=== PATIENT | male | born 1950 | race Caucasian/White ===

== ENCOUNTER 2018-06-06 17:14 | Inpatient (IN) | payer OTHER ==
[~2018-06-06] VITALS: Ht 165.1 cm; Wt 62.1 kg
--- NOTE | 2018-06-06 17:45 | NUR ---
BIB [facility], TACHYPNEIC AND WARM TO TOUCH. VENT/TRACH, CONTRACTED EXTREMITIES. WITH FC, GTUBE. SEEN BY MD FOR EVAL. SAFETY AND COMFORT MEASURES PROVIDED. WILL MONITOR.
[2018-06-06] MEDS ORDERED: SENN8.8S12 GT (17:50)
[2018-06-06] MEDS ORDERED: METO25TA20 GT (17:50)
[2018-06-06] MEDS ORDERED: POLY17PO4 GT (17:50)
[2018-06-06] MEDS ORDERED: AMLO5TAB2 GT (17:50)
[2018-06-06] MEDS ORDERED: AMIO200T4 GT (17:50)
[2018-06-06] MEDS ORDERED: INSU100V3 SQ (17:50)
[2018-06-06] MEDS ORDERED: ASCO500T9 GT (17:50)
[2018-06-06] MEDS ORDERED: LEVE100S GT (17:50)
[2018-06-06] MEDS ORDERED: IPRA3AMP23 IH (17:50)
[2018-06-06] MEDS ORDERED: FAMO40TA7 GT (17:50)
[2018-06-06] MEDS ORDERED: BLOO-668 IN (17:50)
[2018-06-06] MEDS ORDERED: ONDA4TAB5 GT (17:50)
[2018-06-06] MEDS ORDERED: LACT-209 GT (17:50)
[2018-06-06] MEDS ORDERED: ENOX40DI SQ (17:50)
[2018-06-06] MEDS ORDERED: ACET650S26 GT (17:50)
[2018-06-06] MEDS ORDERED: VANC50SO GT (17:51)
--- NOTE | 2018-06-06 18:00 | NUR ---
CALLED NURSING LACTATION NURSE AND REQUESTED A TELE BED
[2018-06-06 18:09] LABS: BASOPHILS # (AUTO) 0.2 /CMM (0.0-0.2); BASOPHILS % (AUTO) 1.3 % (0.0-2.0); EOSINOPHILS % (AUTO) 4.1 % (0.0-6.0); HEMATOCRIT 41 % (39-51); HEMOGLOBIN 13.3 g/dL (13.5-17.5); LYMPHOCYTES % (AUTO) 14.6 % (20.0-44.0); MEAN CORPUSCULAR HEMOGLOBIN 32 PG (26.0-33.0); MEAN CORPUSCULAR HGB CONC 32 g/dl (31.0-36.0); MEAN CORPUSCULAR VOLUME 98 fL (80-96); MONOCYTES # (AUTO) 0.7 /CMM (0.1-1.30); MONOCYTES % (AUTO) 5.1 % (2.0-12.0); NEUTROPHILS # (AUTO) 10.5 /CMM (1.8-8.9); NEUTROPHILS % (AUTO) 74.9 % (43.0-81.0); PLATELET COUNT (AUTO) 584 /CMM (150-450); RDW COEFFICIENT OF VARIATION 15.8 (11.5-15.0); RED BLOOD CELL COUNT(AUTO) 4.23 MIL/uL (4.5-6.0)
--- NOTE | 2018-06-06 18:14 | NUR ---
CALLED [facility] FOR PANEL CALL AND [place]ER[place] LIRA WAS PAGED.
[2018-06-06 18:23] LABS: CALCIUM, SERUM 9.7 mg/dL (8.5-10.1); CARBON DIOXIDE 28 mmol/L (21-32); CHLORIDE 97 mmol/L (98-107); CREATININE 1.2 mg/dL (0.6-1.3); GLUCOSE 104 mg/dL (74-106); SODIUM SERUM 133 mmol/L (136-145); UREA NITROGEN, BLOOD 32 mg/dL (7-18)
[2018-06-06 18:28] LABS: ALANINE AMINOTRANSFERASE 60 U/L (12-78); ALBUMIN 2.5 g/dL (3.4-5.0); ALKALINE PHOSPHATASE 114 U/L (46-116); ASPARTATE AMINOTRANSFERASE 71 U/L (15-37); BILIRUBIN,DIRECT 0.3 mg/dL (0.0-0.2); BILIRUBIN,TOTAL 0.8 mg/dL (0.2-1.0); TOTAL PROTEIN, SERUM 8.5 g/dL (6.4-8.2)
[2018-06-06] MEDS ORDERED: VANCOMYCIN 1 GM in IV D5W 250 ML IV ONE (18:30)
[2018-06-06] MEDS ORDERED: PIPERACILLIN /TAZOBACTAM 3.375 G in IV D5W 50 ML IV ONE (18:30)
[2018-06-06 18:31] LABS: APPEARANCE,URINE Cloudy (CLEAR); BILIRUBIN,URINE Negative (NEGATIVE); BLOOD, URINE Large Ery/uL (NEGATIVE); COLOR,URINE Yellow (YELLOW); KETONES,URINE Negative (NEGATIVE); LEUKOCYTE ESTERASE ,URINE Small (NEGATIVE); NITRITE, URINE Negative (NEGATIVE); PH,URINE 5.5 (5.0-8.0); PROTEIN,URINE 100 mg/dl (NEGATIVE); UGLUCOSE Negative (NEGATIVE); UROBILINOGEN,URINE 0.2 EU/dL (0.2)
[2018-06-06 18:31] LABS: TROPONIN I < 0.017 ng/mL (0.00-0.056)
[2018-06-06 18:32] LABS: INR 1.15 (0.85-1.15)
--- NOTE | 2018-06-06 18:33 | NUR ---
OLD FC DISCONTINUED, NEW FC PLACED. URINE SAMPLE OBTAINED, SENT.
[2018-06-06 18:52] LABS: BACTERIA,URINE Moderate /HPF (None Seen); RBC,URINE 21-50 /HPF (0-2); SQUAMOUS EPITHELIAL CELL,UR Few /HPF (None Seen)
[2018-06-06] MEDS ORDERED: IV NS 0.9% 1,000 ML BAG IV ONE (19:00)
--- NOTE | 2018-06-06 19:29 | NUR ---
REPORT GIVEN TO ED FOR MAIDA.
--- NOTE | 2018-06-06 19:49 | NUR ---
DR MUJICA ON THE PHONE WITH DR SAUNDERS
--- NOTE | 2018-06-06 20:21 | NUR ---
REPORT GIVEN TO CARRIER OPERATORBRIANA QUINTANA. WILL TRANSPORT PT VIA ACLS PROTOCOL.
--- NOTE | 2018-06-06 20:40 | NUR ---
MARC/SLIVER HANDLER NOTES: RECEIVED PT. VIA GURGISELE FROM María Kee/ NURSE PABLO. PT. HAS HIS EYES OPEN BUT NON VERBAL. RESPONSIVE TO TACTILE STIMULI. CONTRACTED UPPER EXTREMITIES AND LOWER EXTREMITIES. ON TELE MONITOR W/ ST 106. W/ GTF OF JEVITY 1.2 @ 50 CC/ HR TOLERATING WELL W/ NO RESIDUAL NOTED. W/ F/C PATENT AND INTACT DRAINING VIA GRAVITY. W/ RFA G 18 AND LH G 20 PATENT AND INTACT W/ NO S/S OF INFECTION/INFILTRATION NOTED. W/ NS @ 100 CC/HR. NO FACIAL GRIMACE OR MOANING NOTES. NO S/S OF ANY RESPIRATORY DISTRESS NOTED. CALL LIGHT W/REACH. WILL CONTINUE TO MONITOR.
[2018-06-06 20:44] VITALS: BP 106/55
[2018-06-06] MEDS ORDERED: IV NS 0.9% 1,000 ML IV ONE (22:00)
[2018-06-06] MEDS ORDERED: JEVITY 1.2 CAL 1,000 ML BOTTLE GT PRN (22:30)
[2018-06-06] MEDS ORDERED: ACETAMINOPHEN LIQUID 160 MG/5 ML BOTTLE GT PRN (22:30)
[2018-06-06] MEDS ORDERED: INSULIN REGULAR, HUMAN 100 UNIT/ML 3 ML VIAL SQ PRN (22:30)
[2018-06-06] MEDS ORDERED: DEXTROSE 50%-WATER 50 ML DISP.SYRIN IV PRN (22:30)
[2018-06-06] MEDS ORDERED: IPRATROPIUM NEB FS 0.5 MG/2.5 ML AMPUL.NEB NEB PRN (22:30)
[2018-06-06] MEDS ORDERED: ONDANSETRON HCL/PF 4 MG/2 ML VIAL IV PRN (22:30)
[2018-06-06] MEDS ORDERED: ALBUTEROL FS 2.5 MG/0.5 ML VIAL.NEB NEB PRN (22:30)
[2018-06-06] MEDS: IV NS 0.9% 1,000 ML BAG IV PRN (23:22)
[2018-06-07] VITALS: BP 109/57
[2018-06-07] MEDS: AMIODARONE HCL 200 MG TABLET GT SCH ×3 (01:21→16:28)
[2018-06-07] MEDS ORDERED: PIPERACILLIN /TAZOBACTAM 3.375 G VIAL IV ONE (01:35)
[2018-06-07] MEDS: PIPERACILLIN /TAZOBACTAM 3.375 G in IV D5W 50 ML IV SCH ×6 (01:53→23:18)
[2018-06-07 04:00] VITALS: BP 91/52
--- NOTE | 2018-06-07 05:21 | NUR ---
MARC/RN NOTES: SPOKE TO ONCALL PHARMACIST TO INFORM THAT ZOSYN WAS HUNG @ 1:30 AM AND IT IS Q 8 HRS. IT IS OK TO HOLD THE 5 AM DOSE. PER THE PHARMACIST IT IS TO SOON TO GIVE. OK TO HOLD THE 5 AM DOSE.
[2018-06-07] MEDS: BLOOD SUGAR DIAGNOSTIC 1 EACH STRIP IN SCH ×5 (05:38→23:17)
[2018-06-07 07:23] LABS: BASOPHILS % (AUTO) 0.3 % (0.0-2.0); EOSINOPHILS % (AUTO) 5.6 % (0.0-6.0); HEMATOCRIT 30 % (39-51); LYMPHOCYTES # (AUTO) 1.9 /CMM (0.8-4.8); LYMPHOCYTES % (AUTO) 19.1 % (20.0-44.0); MEAN CORPUSCULAR HEMOGLOBIN 34 PG (26.0-33.0); MEAN CORPUSCULAR HGB CONC 33 g/dl (31.0-36.0); MEAN CORPUSCULAR VOLUME 102 fL (80-96); MONOCYTES # (AUTO) 0.6 /CMM (0.1-1.30); MONOCYTES % (AUTO) 5.6 % (2.0-12.0); NEUTROPHILS # (AUTO) 6.9 /CMM (1.8-8.9); NEUTROPHILS % (AUTO) 69.4 % (43.0-81.0); PLATELET COUNT (AUTO) 355 /CMM (150-450); RDW COEFFICIENT OF VARIATION 16.4 (11.5-15.0); RED BLOOD CELL COUNT(AUTO) 2.92 MIL/uL (4.5-6.0); WHITE BLOOD COUNT (AUTO) 9.9 K/uL (4.3-11.0)
[2018-06-07 07:29] LABS: HEMOGLOBIN 9.9 g/dL (13.5-17.5)
[2018-06-07] MEDS ORDERED: ACETAMINOPHEN 650 MG/20.3 ML UDC GT PRN (07:30)
[2018-06-07 07:40] LABS: CALCIUM, SERUM 8.1 mg/dL (8.5-10.1); CREATININE 0.8 mg/dL (0.6-1.3); MAGNESIUM 1.7 mg/dL (1.8-2.4); POTASSIUM 3.7 mmol/L (3.5-5.1)
[2018-06-07] MEDS ORDERED: FEE PK DOSING 1 MIN EA MC ONE (07:52)
--- NOTE | 2018-06-07 07:58 | NUR ---
MARC/RN NOTES: REPORT GIVEN TO AM NURSE FOR MAIDA.
[2018-06-07 08:00] VITALS: BP 95/45
--- NOTE | 2018-06-07 08:15 | NUR ---
MARC/RN INITIAL NOTES RECEIVED CHANGE OF ASSIGNMENT. RECEIVED REPORT FROM BRIANA QUINTANA. RECEIVED PT IN BED, ASLEEP, AROUSABLE TO LIGHT PAIN. SINUTS TACHY, HR 107 ON TELEMONITOR. WITH INTACT TPIECE, SHILEY #6 FIO2 28%, TOLERATING WELL, NO SOB NOTED. HOB ELEVATED. WITH ONGOING GTF OF JEVITY 1.2 AT 50 ML/HR, TOLERATING WELL, NO RESIDUE NOTED. GT INTACT AND IN PLACED. WITH ONGOING IVF NS AT 100 ML/HR INFUSING WELL ON RFA. WITH INTACT AND PATENT LHAND SL. NO SIGNS OF INFECTION NOTED. WITH INTACT FC DRAINING BY GRAVITY. SAFETY MEASURES, ASPIRATION AND SEIZURE PRECAUTION IN PLACED. CALL LIGHT WITHIN REACH. WILL CONT TO MONITOR
[2018-06-07] MEDS ORDERED: FAMOTIDINE (20 MG) 20 MG TABLET GT SCH (09:00)
[2018-06-07] MEDS: METOPROLOL TARTRATE 25 MG TABLET GT SCH (09:00)
[2018-06-07] MEDS: POLYETHYLENE GLYCOL 3350 17 GM POWD.PACK GT SCH (09:46)
[2018-06-07] MEDS: ASCORBIC ACID 500 MG TABLET GT SCH (09:46)
[2018-06-07] MEDS: SENNOSIDES 8.6 MG TABLET GT SCH (09:46)
[2018-06-07] MEDS: LEVETIRACETAM SOL (5 ML) 100 MG/ML UDC GT SCH ×2 (09:46→20:26)
[2018-06-07] MEDS: FAMOTIDINE (20 MG) 20 MG TABLET GT SCH (09:46)
[2018-06-07] MEDS: ENOXAPARIN SODIUM 40 MG/0.4 ML DISP.SYRIN SQ SCH (09:53)
[2018-06-07] MEDS: VANCOMYCIN 0.75 GM in IV D5W 250 ML IV SCH ×2 (09:55→20:26)
[2018-06-07] MEDS: IV NS 0.9% 1,000 ML BAG IV PRN ×2 (10:42→22:27)
[2018-06-07] MEDS: Magnesium 1GM/D5W 100ML PREMIX 100 ML IV SCH ×2 (11:21→12:18)
[2018-06-07 12:00] VITALS: BP 110/53
[2018-06-07 16:00] VITALS: BP_SYST 101; BP_SYST 110; BP_DIAS 50; BP_DIAS 53
--- NOTE | 2018-06-07 19:10 | NUR ---
MARC/RN CLOSING NOTES PT IN STABLE CONDITION. NO ACUTE DISTRESS NOTED THROUGHOUT SHIFT. REMAINED AFEBRILE. NO SEIZURE EPISODE NOTED. SAFETY MEASURES AND ASPIRATION PRECAUTION OBSERVED AT ALL TIMES. ALL NEEDS ANTICIPATED. ENDORSED TO SHIFT NURSE FOR MAIDA
--- NOTE | 2018-06-07 19:30 | NUR ---
RN INITIAL NOTES RECEIVED THE PATIENT AWAKE ON BED, OBTUNDED. ON COOL AEROSOL, 28% FIO2, SHILEY 6, SATURATING WELL, NO S/S OF RESP DISTRESS. CURRENTLY SINUS TACH ON THE MONITOR, HR 110'S. PEG TO JEVITY 1.2 @ 50MLS/HR, NO RESIDUALS, TOLERATING WELL. ZELAYA CATH INTACT. RIGHT FOREARM 18G AND LEFT HAND 20G WITH NS @ 100MLS/HR, NO S/S OF INFILTRATION/INFECTION, DRESSINGS CDI. BED LOW AND LOCKED, SIDERAILS UP, BED ALARM ON. WILL MONITOR
[2018-06-07 20:00] VITALS: BP 107/55
[2018-06-08] VITALS: BP 98/53
[2018-06-08 04:00] VITALS: BP 114/67
[2018-06-08] MEDS: BLOOD SUGAR DIAGNOSTIC 1 EACH STRIP IN SCH ×4 (05:22→23:34)
[2018-06-08] MEDS: PIPERACILLIN /TAZOBACTAM 3.375 G in IV D5W 50 ML IV SCH (05:28)
--- NOTE | 2018-06-08 06:15 | NUR ---
RN CLOSING NOTES PT REMAINS STABLE OF THE MOMENT. ALL DUE MEDS GIVEN, AM CARE PROVIDED. WILL ENDORSE MAIDA TO AM RN
[2018-06-08 06:44] LABS: BASOPHILS % (AUTO) 0.2 % (0.0-2.0); EOSINOPHILS % (AUTO) 6.1 % (0.0-6.0); HEMATOCRIT 33 % (39-51); LYMPHOCYTES # (AUTO) 1.9 /CMM (0.8-4.8); LYMPHOCYTES % (AUTO) 24.6 % (20.0-44.0); MEAN CORPUSCULAR HEMOGLOBIN 34 PG (26.0-33.0); MEAN CORPUSCULAR HGB CONC 33 g/dl (31.0-36.0); MEAN CORPUSCULAR VOLUME 103 fL (80-96); MONOCYTES # (AUTO) 0.7 /CMM (0.1-1.30); MONOCYTES % (AUTO) 8.3 % (2.0-12.0); NEUTROPHILS # (AUTO) 4.8 /CMM (1.8-8.9); NEUTROPHILS % (AUTO) 60.8 % (43.0-81.0); PLATELET COUNT (AUTO) 305 /CMM (150-450); RDW COEFFICIENT OF VARIATION 16.4 (11.5-15.0); RED BLOOD CELL COUNT(AUTO) 3.21 MIL/uL (4.5-6.0); WHITE BLOOD COUNT (AUTO) 7.9 K/uL (4.3-11.0)
[2018-06-08 07:10] LABS: CALCIUM, SERUM 7.9 mg/dL (8.5-10.1); CREATININE 0.7 mg/dL (0.6-1.3)
[2018-06-08 08:00] VITALS: BP 118/59
--- NOTE | 2018-06-08 08:00 | NUR ---
TD/RN AM SHIFT INITIAL NOTES RECEIVED PT AWAKE IN BED, PT OBTUNDED, OPEN EYES SPONTANEOUSLY, NO GRIMACING, FEVER OR ACUTE RESPIRATORY DISTRESS NOTED. ON T-PIECE WITH 5L O2, FIO2 28%, RESPIRATIONS EVEN AND UNLABORED, SATURATING @ 1009%, LUNG SOUNDS DIMINISHED, SUCTIONED FOR AIRWAY CLEARANCE. ON TELE MONITORING SINUS TACHY , HR 61. PT IS VERY CONTRACTED, FEET REPOSITIONED TO OFFLOAD BED. HANDS WITH PITTING EDEMA. WITH ON GOING IV INFUSION OF NS @ 100CC/HR, SITE PATENT, NO S/S OF INFECTION. GT FEEDING ON GOING @ 505CC/HR, NO GASTRIC RESIDUAL NOTED, FLUSHED, PATENT, FEEDING TURNED OFF FOR THE 20 HOUR FEEDING SCHEDULED TO RESUME AT NOON. ZELAYA CATHETER INTACT WITH CLOUDY YELLOW URINE OUTPUT. PT IS COMFORTABLE, SCHEDULED AM MEDS TO BE GIVEN. CL WITHIN REACHED AND SAFETY MAINTAINED
[2018-06-08] MEDS: VANCOMYCIN 0.75 GM in IV D5W 250 ML IV SCH ×2 (09:00→22:20)
[2018-06-08] MEDS: ENOXAPARIN SODIUM 40 MG/0.4 ML DISP.SYRIN SQ SCH (09:01)
[2018-06-08] MEDS: POLYETHYLENE GLYCOL 3350 17 GM POWD.PACK GT SCH (09:01)
[2018-06-08] MEDS: SENNOSIDES 8.6 MG TABLET GT SCH (09:02)
[2018-06-08] MEDS: LEVETIRACETAM SOL (5 ML) 100 MG/ML UDC GT SCH ×2 (09:02→21:34)
[2018-06-08] MEDS: ASCORBIC ACID 500 MG TABLET GT SCH (09:03)
[2018-06-08] MEDS: AMIODARONE HCL 200 MG TABLET GT SCH ×2 (09:03→16:23)
[2018-06-08] MEDS: FAMOTIDINE (20 MG) 20 MG TABLET GT SCH (09:04)
[2018-06-08] MEDS: METOPROLOL TARTRATE 25 MG TABLET GT SCH ×2 (09:04→16:24)
--- NOTE | 2018-06-08 11:11 | NUR ---
TD/RN ROUNDS - DR. SAUNDERS UPDATED PT'S CONDITION. PT SEEN & EXAMINED BY DR. SAUNDERS. NEW ORDERS RECEIVED, TO BE CARRIED OUT. MONITORING CONTINUED.
[2018-06-08 12:00] VITALS: BP 122/68
[2018-06-08] MEDS: Potassium Chloride 10 MEQ in IV NS 0.9% 1,000 ML IV PRN ×2 (12:15→23:38)
[2018-06-08] MEDS: MEROPENEM 1 G in IV NS 0.9% 100 ML IV SCH ×2 (12:15→21:32)
[2018-06-08] MEDS ORDERED: Z GUARD REMEDY 2 OZ OINT TP PRN (13:00)
[2018-06-08 16:00] VITALS: BP 115/53
[2018-06-08] MEDS: LACTOBACILLUS RHAMNOSUS GG 1 EACH CAP.SPRINK PO SCH (16:23)
--- NOTE | 2018-06-08 17:00 | NUR ---
TD/RN AFTERNOON ROUNDS PM CARE PROVIDED. NO CHANGE CONDITION. ON GOING MONITORING.
--- NOTE | 2018-06-08 19:19 | NUR ---
TD/RN AM SHIFT END NOTES ALL NEEDS MET. NO ACUTE CHANGE OF CONDITION NOTED DURING THE SHIFT. PT ENDORSED TO PM NURSE TO CONTINUE CARE. CL WITHIN REACHED AND SAFETY MAINTAINED.
[2018-06-08 20:00] VITALS: BP 108/53
--- NOTE | 2018-06-08 20:00 | NUR ---
RN INITIAL NOTES RECEIVED THE PATIENT AWAKE ON BED, OBTUNDED. ON COOL AEROSOL, 28% FIO2, SHILEY 6, SATURATING WELL, NO S/S OF RESP DISTRESS. CURRENTLY SR ON THE MONITOR, HR 83. PEG TO JEVITY 1.2 @ 50MLS/HR, NO RESIDUALS, TOLERATING WELL. ZELAYA CATH INTACT. RIGHT FOREARM 18G AND LEFT HAND 20G WITH NS @ 100MLS/HR, NO S/S OF INFILTRATION/INFECTION, DRESSINGS CDI. BED LOW AND LOCKED, SIDE RAILS UP, BED ALARM ON. WILL MONITOR
[2018-06-09] VITALS: BP 98/47
[2018-06-09 02:04] VITALS: BP 98/47
[2018-06-09 04:00] VITALS: BP 96/58
[2018-06-09] MEDS: MEROPENEM 1 G in IV NS 0.9% 100 ML IV SCH ×2 (05:17→12:46)
[2018-06-09] MEDS: BLOOD SUGAR DIAGNOSTIC 1 EACH STRIP IN SCH ×2 (05:18→12:39)
[2018-06-09 06:30] LABS: CALCIUM, SERUM 8.1 mg/dL (8.5-10.1); CREATININE 0.6 mg/dL (0.6-1.3); POTASSIUM 4.6 mmol/L (3.5-5.1)
[2018-06-09 06:31] LABS: MAGNESIUM 1.5 mg/dL (1.8-2.4)
[2018-06-09 06:45] VITALS: BP 96/58
--- NOTE | 2018-06-09 06:57 | NUR ---
RN CLOSING NOTES PT REMAINS STABLE OF THE MOMENT. ALL DUE MEDS GIVEN, PM CARE PROVIDED. WILL ENDORSE MAIDA TO AM RN
[2018-06-09 07:00] LABS: BASOPHILS % (AUTO) 0.2 % (0.0-2.0); EOSINOPHILS % (AUTO) 9.1 % (0.0-6.0); HEMATOCRIT 30 % (39-51); HEMOGLOBIN 10.4 g/dL (13.5-17.5); LYMPHOCYTES # (AUTO) 1.8 /CMM (0.8-4.8); LYMPHOCYTES % (AUTO) 27.2 % (20.0-44.0); MEAN CORPUSCULAR HEMOGLOBIN 35 PG (26.0-33.0); MEAN CORPUSCULAR HGB CONC 34 g/dl (31.0-36.0); MEAN CORPUSCULAR VOLUME 102 fL (80-96); MONOCYTES # (AUTO) 0.5 /CMM (0.1-1.30); MONOCYTES % (AUTO) 6.9 % (2.0-12.0); NEUTROPHILS # (AUTO) 3.8 /CMM (1.8-8.9); NEUTROPHILS % (AUTO) 56.6 % (43.0-81.0); PLATELET COUNT (AUTO) 293 /CMM (150-450); RDW COEFFICIENT OF VARIATION 16.6 (11.5-15.0); RED BLOOD CELL COUNT(AUTO) 2.97 MIL/uL (4.5-6.0); WHITE BLOOD COUNT (AUTO) 6.7 K/uL (4.3-11.0)
--- NOTE | 2018-06-09 07:00 | NUR ---
RN NOTES RECEIVED PT ON BED, OBTUNDED , TRACH DEPENDENT , TRACH CARE DONE, ON TELE SR HR IN 80'S , ZELAYA DRANING TO GRAVITY , JEVITY AT 50CC/HR RUNNING VIA PEG , NO RESIDUAL NOTED, NS WITH 10MEQ KCL AT 75CC/HR RUNNING VIA L AND IV SITE G 18, SR UP x3, CALL LIGHT WITHIN EASY REACH, BED LOCKED AND IN LOWEST POSITION , CONTINUE TO MONITOR
[2018-06-09 08:00] VITALS: BP 126/63
[2018-06-09] MEDS ORDERED: MERO1VIA3 IV (08:41)
[2018-06-09] MEDS: LEVETIRACETAM SOL (5 ML) 100 MG/ML UDC GT SCH (08:41)
[2018-06-09] MEDS: ASCORBIC ACID 500 MG TABLET GT SCH (08:42)
[2018-06-09] MEDS: FAMOTIDINE (20 MG) 20 MG TABLET GT SCH (08:42)
[2018-06-09] MEDS: METOPROLOL TARTRATE 25 MG TABLET GT SCH (08:42)
[2018-06-09] MEDS: LACTOBACILLUS RHAMNOSUS GG 1 EACH CAP.SPRINK PO SCH (08:42)
[2018-06-09] MEDS: SENNOSIDES 8.6 MG TABLET GT SCH (08:43)
[2018-06-09] MEDS: AMIODARONE HCL 200 MG TABLET GT SCH (08:43)
[2018-06-09] MEDS: POLYETHYLENE GLYCOL 3350 17 GM POWD.PACK GT SCH (08:43)
[2018-06-09] MEDS: ENOXAPARIN SODIUM 40 MG/0.4 ML DISP.SYRIN SQ SCH (08:45)
[2018-06-09] MEDS: VANCOMYCIN 0.75 GM in IV D5W 250 ML IV SCH (08:47)
[2018-06-09] MEDS: Magnesium 1GM/D5W 100ML PREMIX 100 ML IV SCH ×3 (10:10→12:24)
[2018-06-09 12:00] VITALS: BP 125/65
--- NOTE | 2018-06-09 14:10 | NUR ---
RN NOTES REPORT GIVEN TO [facility], L HAND IV SITE LEFT IN FOR CONTINUOS IV ABX, PT. LEFT THE FLOOR TO MAIN ENTRANCE ACCOMPANIED BY EMT PERSONNEL VIA AMBULANCE IN STABLE CONDITION.
== END 2018-06-09 14:10 | DRG 871 ==
LOC: ER 17:16 → TELE1 20:24 → TELE-TD 22:02
PROVIDERS: ADMIT Internal Medicine; ATTEND Internal Medicine
DX: A41.9 Sepsis, unspecified organism (principal); L89.313 Pressure ulcer of right buttock, stage 3; J96.20 Acute and chronic respiratory failure, unspecified whether with hypoxia or hypercapnia; J18.9 Pneumonia, unspecified organism; G92 Toxic encephalopathy; G82.50 Quadriplegia, unspecified; N39.0 Urinary tract infection, site not specified; I47.1 Supraventricular tachycardia; G40.909 Epilepsy, unspecified, not intractable, without status epilepticus; Z79.4 Long term (current) use of insulin; Z79.899 Other long term (current) drug therapy; E11.9 Type 2 diabetes mellitus without complications; Z16.12 Extended spectrum beta lactamase (ESBL) resistance; B96.20 Unspecified Escherichia coli [E. coli] as the cause of diseases classified elsewhere; Z93.1 Gastrostomy status; Z93.0 Tracheostomy status; I10 Essential (primary) hypertension
CPT/HCPCS: 31720; 36415; 71045-TC; 80048-TC; 80076-TC; 80202-TC; 81000-TC; 82962-TC; 83605-TC; 83735-TC; 84484-TC; 85025-TC; 85730-TC; 87040-TC; 87081-TC; 87086-TC; 87186-TC; 94640-TC; A4217; A4606; A6253; A6402; A6403; J1650; J1815; J1953; J2185; J2543; J3370; J3475; J3480; J7030; J7060; Z7610